=== PATIENT | female | born 1965 | race Caucasian/White ===

== ENCOUNTER 2020-07-05 17:03 | Emergency (ER) | payer MEDICARE, OTHER ==
[~2020-07-05] VITALS: Ht 167.6 cm; Wt 77.6 kg
[~2020-07-05 17:03] MED LIST: ALDACTONE25 MG PO; B-100 COMPLEX1 EAC1 PO; CALCIUM OYSTER500 MG OR; DICLOFENAC SODI75 MG PO; ERYTHROCIN STE250 MG PO; ERYTHROMYCIN250 MG PO; ESTRACE0.5 MG PO; FISH OIL 1,001000 MG PO; KEPPRA; KEPPRA XR750 MG; LAMICTAL; MULTIVITAMINS OR; NAPROSYN500 MG PO; PAROXETINE HCL40 MG PO; PROGESTERONE; REGLAN 5 MG TAB5 MG PO; SPIRONOLACTONE100 M1 PO; VOLTAREN GEL 1100 G2 TOP
[2020-07-05] MEDS ORDERED: PROTONIX40 M2 PO (17:13)
[2020-07-05 17:31] LABS: URINE BILIRUBIN NEGATIVE (Negative); URINE BLOOD 2+ (Negative); URINE CLARITY CLEAR; URINE COLOR YELLOW; URINE GLUCOSE-RANDOM NEGATIVE (Negative); URINE KETONES NEGATIVE (Negative); URINE LEUKOCYTES-REFLEX NEGATIVE (Negative); URINE NITRITE-REFLEX NEGATIVE (Negative); URINE PROTEIN NEGATIVE (Negative); URINE UROBILINOGEN 0.2 E.U./dl (0.2-1.0)
[2020-07-05 17:39] LABS: SQUAMOUS 4-10 Moderate /LPF (0-3)
[2020-07-05 17:40] LABS: CASTS None Seen /LPF (None Seen); CRYSTALS None Seen /LPF (None Seen); MUCUS 4-6 Moderate strn/LPF (None Seen); URINE RBC 0-2 Rare /HPF (0-2); URINE WBC-REFLEX 0-5 Rare /HPF (0-5)
[2020-07-05] MEDS ORDERED: CIPRO500 MG PO (18:30)
[2020-07-05] MEDS ORDERED: ZOFRAN ODT4 MG PO (18:30)
[2020-07-05 18:35] VITALS: BP 120/70
== END 2020-07-05 18:37 | disposition home or self-care (01) ==
LOC: M.ERS 17:03
PROVIDERS: Nurse Practitioner Family
DX: N39.0 Urinary tract infection, site not specified (principal)